=== PATIENT | female | born 1995 | race Caucasian/White ===

== ENCOUNTER 2018-06-16 08:51 | Emergency (ER) | payer MEDICAID ==
[~2018-06-16] VITALS: Ht 167.6 cm; Wt 72.0 kg
[2018-06-16 11:40] LABS: BASOPHILS % 0.6 % (0.0-2.0); EOSINOPHILS % 0.9 % (0.0-5.0); HEMATOCRIT. 37.8 % (36.0-48.0); HEMOGLOBIN. 12.5 g/dL (12.0-16.0); LYMPHOCYTES % 31.7 % (20.0-50.0); MEAN CORPUSCULAR HEMOGLOBIN 26.8 pg (28.0-32.0); MEAN PLATELET VOLUME 8.2 fl (7.4-10.4); MONOCYTES % 7.4 % (2.0-8.0); NEUTROPHILS % 59.4 % (40.0-76.0); PLATELET 175 x1000/uL (130-400); RED BLOOD CELL COUNT 4.67 mill/uL (4.2-5.4); RED CELL DISTRIBUTION WIDTH 13.8 % (11.6-14.6)
[2018-06-16 11:49] LABS: HCG SCREEN NEGATIVE
[2018-06-16 11:51] LABS: CHLORIDE 107 mEq/L (98-107)
[2018-06-16 11:52] LABS: INR 1.1; PROTHROMBIN TIME 10.7 sec (9.1-11.1)
[2018-06-16 14:14] VITALS: BP 116/72
== END 2018-06-16 14:34 | disposition home or self-care (01) ==
LOC: ER 09:15
DX: K64.4 Residual hemorrhoidal skin tags (principal); R58 Hemorrhage, not elsewhere classified
CPT/HCPCS: 36415; 80053; 84703; 85025; 85610; 85730; 99284